=== PATIENT | female | born 1965 | race American Indian/Alaskan Native ===

== ENCOUNTER 2021-12-22 02:23 | Inpatient (IN) | payer SELFPAY ==
[2021-12-22] MEDS ORDERED: ASPIRIN EC 81 MG TAB PO SCH (10:00)
[2021-12-22] MEDS ORDERED: ALPRAZolam 0.25 MG TAB PO PRN (10:18)
[2021-12-22] MEDS ORDERED: ACETAMINOPHEN 325 MG TAB PO PRN (14:25)
[2021-12-22] MEDS ORDERED: HYDROmorphone 1 MG/1 ML INJ IV PRN (14:26)
[2021-12-22] MEDS ORDERED: NITROGLYCERIN 0.4 MG TAB SUBL SL PRN (14:28)
[2021-12-22] MEDS ORDERED: MORPHINE 2 MG/1 ML INJ IV PRN (14:28)
--- NOTE | 2021-12-22 14:51 | Consultation ---
Date of Service: 12/22/[address]: GUS MOE MD cc: ~ Consultation Draft History of Present Illness Consult date: 12/22/21 Requesting physician: ОЛЕГ SCANLON Consult reason: chest pain History of present illness: Patient is a 56 yr old who presents with chest pain. Patient wtih history of hypertension , smoking history who woke up with cehst pain. EMT were called and patient noted to have acute infeiror STEMI on EKG. Code STEMI was initiated. On presentation to the hospital patient still continues to have chest pain and had significant inferior ST-T wave changes. She was taken emergently to the [facility] underwent primary PCI of totally occluded right coronary artery. Patient had intraprocedure V. fib and was cardioverted successfully. She also had bradycardia requiring atropine infusion. Patient currently hemodynamically stable and being admitted to the ICU for further treatment post PCI. Past History Past Medical History: hypertension, other (Tobacco abuse) Social history: smoking Medications and Allergies Allergies Allergy/AdvReac Type Severity Reaction Status Date / Time Penicillins Allergy Unknown Verified 12/22/21 02:47 Active Meds: Active Medications Acetaminophen (Acetaminophen 325 Mg Tab) 650 mg PO Q4H PRN PRN Reason: Pain, Mild (1-3) Aspirin (Aspirin 81 Mg Tab Chew) 81 mg PO QDAY CHANG Atorvastatin Calcium (Atorvastatin 40 Mg Tab) 40 mg PO QHS CHANG Hydromorphone HCl (Hydromorphone 1 Mg/1 Ml Inj) 0.5 mg IV Q3H PRN PRN Reason: Pain , Severe (7-10) Heparin Sodium/Sodium Chloride (Heparin/ 0.45% Nacl-25,000 Unit/500 Ml) 25,000 unit in 500 mls @ 20 mls/hr IV TITRATE CHANG; Protocol Sodium Chloride (Nacl 0.9% 1000 Ml) 1,000 mls @ 100 mls/hr IV DIRECT CHANG Last Admin: 12/22/21 03:15 Dose: 1,000 mls Morphine Sulfate (Morphine 2 Mg/1 Ml Inj) 2 mg IV Q4H PRN PRN Reason: Pain, Moderate (4-6) Nitroglycerin (Nitroglycerin 0.4 Mg Tab Subl) 0.4 mg SL .Q5MIN PRN PRN Reason: Chest Pain Review of Systems All systems: negative (As mentioned in H&P) Physical Examination Vital Signs Temp Pulse Resp BP Pulse Ox 98 F 71 20 150/93 100 12/22/21 02:31 12/22/21 02:31 12/22/21 02:31 12/22/21 02:31 12/22/21 02:31 General appearance: no acute distress HEENT: Positive: Normocephaly Neck: Positive: neck supple Cardiac: Positive: Reg Rate and Rhythm Lungs: Positive: clear to auscultation Neuro: Positive: Grossly Intact Abdomen: Positive: Unremarkable Female genitourinary: deferred Extremities: Present: normal Results 12/22/21 02:36 12/22/21 02:36 Cardiac Enzymes 12/22/21 Range/Units 02:36 CK-MB (CK-2) 2.0 (0.0-4.0) ng/mL Coagulation 12/22/21 Range/Units 02:36 PT 12.5 (12.2-14.9) Sec. INR 0.85 L (0.87-1.13) APTT 24.4 (24.2-36.6) Sec. CBC 12/22/21 Range/Units 02:36 WBC 6.7 (4.5-11.0) K/mm3 RBC 4.55 (3.65-5.03) M/mm3 Hgb 16.0 H (10.1-14.3) gm/dl Hct 48.9 H (30.3-42.9) % Plt Count 150 (140-440) K/mm3 Lymph # (Auto) 3.2 (1.2-5.4) K/mm3 [place] # (Auto) 0.5 (0.0-0.8) K/mm3 Eos # (Auto) 0.2 (0.0-0.4) K/mm3 Baso # (Auto) 0.0 (0.0-0.1) K/mm3 Comprehensive Metabolic Panel 12/22/21 Range/Units 02:36 Sodium 143 (137-145) mmol/L Potassium 3.6 (3.6-5.0) mmol/L Chloride 105.5 (98-107) mmol/L Carbon Dioxide 22 (22-30) mmol/L BUN 12 (7-17) mg/dL Creatinine 0.9 (0.6-1.2) mg/dL Glucose 130 H (65-100) mg/dL Calcium 9.0 (8.4-10.2) mg/dL EKG interpretations - Telemetry EKG Rhythm: Sinus Rhythm (With acute inferior ST elevation DE) Assessment and Plan Impression 1. Acute inferior ST elevation DE status post PCI of the RCA with drug-eluting stent 2. Periprocedural V. fib requiring cardioversion and transient bradycardia requiring atropine patient currently hemodynamically stable 3. History of 4. History of tobacco abuse Plan 1. Dual antiplatelet therapy for 1 year preferably more 2. Routine pharmacotherapy post PCI 3. Aggrastat for 6 4. 2D echo 5. Tobacco cessation 6. If stable patient can be discharged home tomorrow Dictated By: HEATHER ROLDAN MD Electronically Authenticated By: AMANUEL
--- NOTE | 2021-12-22 14:54 | Consultation ---
Date of Service: 12/22/[address]: GUS MOE MD cc: ~ Consultation Draft History of Present Illness - Reason for Consult Consult date: 12/22/21 STEMI - History of Present Illness Patient is a 56 yr old who presents with chest pain. Patient wtih history of hypertension , smoking history who woke up with cehst pain. EMT were called and patient noted to have acute infeiror STEMI on EKG. Code STEMI was initiated. On presentation to the hospital patient still continues to have chest pain and had significant inferior ST-T wave changes. She was taken emergently to the [facility] underwent primary PCI of totally occluded right coronary artery. Patient had intraprocedure V. fib and was cardioverted successfully. She also had bradycardia requiring atropine infusion. Patient currently hemodynamically stable and being admitted to the ICU for further treatment post PCI. Past History Past Medical History: hypertension, other (Tobacco abuse and anxiety) Social history: smoking Medications and Allergies Allergies Allergy/AdvReac Type Severity Reaction Status Date / Time Penicillins Allergy Unknown Verified 12/22/21 09:06 Active Meds: Active Medications Acetaminophen (Acetaminophen 325 Mg Tab) 650 mg PO Q4H PRN PRN Reason: Pain, Mild (1-3) Atorvastatin Calcium (Atorvastatin 40 Mg Tab) 80 mg PO QHS CHANG Carvedilol (Carvedilol 3.125 Mg Tab) 3.125 mg PO BID CHANG Last Admin: 12/22/21 09:55 Dose: 3.125 mg Hydromorphone HCl (Hydromorphone 1 Mg/1 Ml Inj) 0.5 mg IV Q3H PRN PRN Reason: Pain , Severe (7-10) Heparin Sodium/Sodium Chloride (Heparin/ 0.45% Nacl-25,000 Unit/500 Ml) 25,000 unit in 500 mls @ 20 mls/hr IV TITRATE CHANG; Protocol Sodium Chloride (Nacl 0.9% 1000 Ml) 1,000 mls @ 100 mls/hr IV DIRECT CHANG Last Admin: 12/22/21 10:13 Dose: 100 mls/hr Morphine Sulfate (Morphine 2 Mg/1 Ml Inj) 2 mg IV Q4H PRN PRN Reason: Pain, Moderate (4-6) Last Admin: 12/22/21 07:30 Dose: 2 mg Nitroglycerin (Nitroglycerin 0.4 Mg Tab Subl) 0.4 mg SL .Q5MIN PRN PRN Reason: Chest Pain Ticagrelor (Ticagrelor 90 Mg Tab) 90 mg PO BID CHANG Last Admin: 12/22/21 09:56 Dose: 90 mg Exam - Constitutional Vitals: Temp Pulse Resp BP Pulse Ox 98.1 F 63 16 200/99 97 12/22/21 02:44 12/22/21 09:55 12/22/21 08:41 12/22/21 09:55 12/22/21 08:41 General appearance: Present: no acute distress, other (appears older than stated age) - EENT Eyes: Present: PERRL, EOM intact ENT: poor dentition - Neck Neck: Present: supple, normal ROM - Respiratory Respiratory effort: normal Respiratory: bilateral: CTA Results - Labs CBC & Chem 7: 12/22/21 02:36 12/22/21 02:36 Labs: Abnormal lab results 12/22/21 12/22/21 12/22/21 Range/Units 02:36 02:36 02:36 Hgb 16.0 H (10.1-14.3) gm/dl Hct 48.9 H (30.3-42.9) % MCV 107 H (79-97) fl MCH 35 H (28-32) pg Lymph % (Auto) 47.8 H (13.4-35.0) % INR 0.85 L (0.87-1.13) Glucose 130 H (65-100) mg/dL Total Creatine Kinase (30-135) units/L CK-MB (CK-2) (0.0-4.0) ng/mL CK-MB (CK-2) Rel Index (0-4) Troponin T (0.00-0.029) ng/mL Triglycerides (2-149) mg/dL Cholesterol (50-199) mg/dL LDL Cholesterol Direct (50-130) mg/dL 12/22/21 Range/Units 07:28 Hgb (10.1-14.3) gm/dl Hct (30.3-42.9) % MCV (79-97) fl MCH (28-32) pg Lymph % (Auto) (13.4-35.0) % INR (0.87-1.13) Glucose (65-100) mg/dL Total Creatine Kinase 274 H (30-135) units/L CK-MB (CK-2) 27.7 H (0.0-4.0) ng/mL CK-MB (CK-2) Rel Index 10.1 H (0-4) Troponin T 0.774 H* D (0.00-0.029) ng/mL Triglycerides 363 H (2-149) mg/dL Cholesterol 306 H (50-199) mg/dL LDL Cholesterol Direct 215 H (50-130) mg/dL - Imaging and Cardiology Chest x-ray: image reviewed (clear bilaterally) Assessment and Plan 56 y/o female with stemi 1. Follow up cards recs 2. Anxiety therapy 3. Morphine for chest pain 4. clinically appears stable for transfer out of unit Dictated By: MIRIAM ALANIZ MD Electronically Authenticated By: AMANUEL
--- NOTE | 2021-12-22 14:57 | History and Physical Report ---
Admission Date: 12/22/[address]: GUS MOE MD cc: ~ History and Physical Report Draft History of Present Illness Date of examination: 12/22/21 Date of admission: 12/22/21 Chief complaint: Chest pain History of present illness: 56 years old female with history of hypertension and tobacco abuse was brought to the emergency room code STEMI. Patient symptoms started approximately 20 minutes prior to coming to the ER with left sided chest pain, tightness with radiation to the left upper extremity. Patient rated her pain as 8 out of 10. Patient denies any shortness of breath, fever, chills or cough. EMS transmitted EKG prior to coming to the ER. ER doctor reviewed the EKG and immediately activated STEMI protocol. Case discussed the patient with Dr. Hernandez, interventionalist on-call. Patient is going for the heart cath .patient received aspirin by EMS. Patient given a heparin bolus and started on heparin drip. Past History Past Medical History: hypertension, other (Tobacco abuse) Social history: smoking Medications and Allergies Allergies Allergy/AdvReac Type Severity Reaction Status Date / Time Penicillins Allergy Unknown Verified 12/22/21 02:47 Active Meds: Active Medications Heparin Sodium (Porcine) (Heparin 1,000 Unit/1 Ml Vial) 4,000 unit IV BOLUS ONE Stop: 12/22/21 02:29 Sodium Chloride (Nacl 0.9% 1000 Ml) 1,000 mls @ 999 mls/hr IV BOLUS ONE Stop: 12/22/21 03:28 Heparin Sodium/Sodium Chloride (Heparin/ 0.45% Nacl-25,000 Unit/500 Ml) 25,000 unit in 500 mls @ 0 mls/hr IV TITRATE CHANG; Protocol Review of Systems Cardiovascular: chest pain, shortness of breath, dyspnea on exertion Respiratory: shortness of breath, dyspnea on exertion Exam - Constitutional Vitals: Temp Pulse Resp BP Pulse Ox 98.1 F 79 12 150/93 100 12/22/21 02:44 12/22/21 02:49 12/22/21 02:45 12/22/21 02:45 12/22/21 02:44 General appearance: Present: severe distress - EENT Eyes: Present: PERRL ENT: hearing intact, clear oral mucosa - Neck Neck: Present: supple, normal ROM - Respiratory Respiratory effort: normal Respiratory: bilateral: diminished - Cardiovascular Heart Sounds: Present: S1 & S2. Absent: rub, click - Extremities Extremities: pulses symmetrical, No edema Peripheral Pulses: within normal limits - Abdominal General gastrointestinal: Present: soft, non-tender, non-distended, normal bowel sounds Female genitourinary: Present: normal - Integumentary Integumentary: Present: clear, warm, dry - Musculoskeletal Musculoskeletal: gait normal, strength equal bilaterally - Psychiatric Psychiatric: appropriate mood/affect, intact judgment & insight - Neurologic Neurologic: CNII-XII intact, moves all extremities HEART Score - HEART Score EKG: Significant ST-depression Age: 45-65 Risk factors: 1-2 risk factors - Critical Actions Critical Actions: >7 pts:50-65% risk of adverse cardiac event. Early invasive measures Results - Labs CBC & Chem 7: 12/22/21 02:36 Labs: Laboratory Last Values WBC 6.7 K/mm3 (4.5-11.0) 12/22/21 02:36 RBC 4.55 M/mm3 (3.65-5.03) 12/22/21 02:36 Hgb 16.0 gm/dl (10.1-14.3) H 12/22/21 02:36 Hct 48.9 % (30.3-42.9) H 12/22/21 02:36 MCV 107 fl (79-97) H 12/22/21 02:36 MCH 35 pg (28-32) H 12/22/21 02:36 MCHC 33 % (30-34) 12/22/21 02:36 RDW 13.2 % (13.2-15.2) 12/22/21 02:36 Plt Count 150 K/mm3 (140-440) 12/22/21 02:36 Lymph % (Auto) 47.8 % (13.4-35.0) H 12/22/21 02:36 [place] % (Auto) 6.8 % (0.0-7.3) 12/22/21 02:36 Eos % (Auto) 3.1 % (0.0-4.3) 12/22/21 02:36 Baso % (Auto) 0.5 % (0.0-1.8) 12/22/21 02:36 Lymph # (Auto) 3.2 K/mm3 (1.2-5.4) 12/22/21 02:36 [place] # (Auto) 0.5 K/mm3 (0.0-0.8) 12/22/21 02:36 Eos # (Auto) 0.2 K/mm3 (0.0-0.4) 12/22/21 02:36 Baso # (Auto) 0.0 K/mm3 (0.0-0.1) 12/22/21 02:36 Seg Neutrophils % 41.8 % (40.0-70.0) 12/22/21 02:36 Seg Neutrophils # 2.8 K/mm3 (1.8-7.7) 12/22/21 02:36 Blood Type B POSITIVE 12/22/21 02:36 - Imaging and Cardiology Chest x-ray: report reviewed Assessment and Plan VTE prophylaxis?: Chemical Plan of care discussed with patient/family: Yes - Patient Problems (1) STEMI (ST elevation myocardial infarction) Status: Acute Plan to address problem: Admit the patient to the critical care unit. ER doctor reviewed the EKG and immediately activated STEMI protocol. Case discussed the patient with Dr. Hernandez, interventionalist on-call. Patient is going for the heart cath .patient received aspirin by EMS. Patient given a heparin bolus and started on heparin drip. We will do the serial cardiac enzymes. Echocardiogram. We also consult critical care evaluation (2) Hypertension Status: Acute Plan to address problem: Hydralazine 10 mg IV every 6 hours as needed. We will continue the home medication (3) Tobacco abuse Status: Acute Plan to address problem: Patient counseled regarding quitting smoking. We also put the patient on nicotine patch (4) DVT prophylaxis Status: Acute Plan to address problem: Heparin drip for DVT prophylaxis. Pepcid 20 mg IV every 12 hours for GI prophylaxis. Patient is a full code MTDD
--- NOTE | 2021-12-22 14:59 | Physician Progress Note ---
Date of Service: 12/22/[address]: GUS MOE MD cc: ~ Progress Note Draft Assessment and Plan - Patient Problems (1) STEMI (ST elevation myocardial infarction) Current Visit: No Status: Acute Plan to address problem: Continue guideline directed medical therapy, dual oral antiplatelet therapy with baby aspirin and Brilinta. Patient is stable for transfer to telemetry today, with anticipated discharge plan for tomorrow. Subjective Date of service: 12/22/21 Principal diagnosis: Acute inferior STEMI Interval history: 56-year-old woman with chronic tobacco abuse, hypertension, who presented with an acute inferior STEMI. Successful PCI with coronary stent placement in the mid distal AV groove right coronary artery. Currently chest pain-free, appears anxious, no acute respiratory distress. Objective Vital Signs Temp Pulse Pulse Resp BP BP Pulse Ox 12/22/21 12:43 81 16 99 12/22/21 12:41 64 11 L 177/106 100 12/22/21 12:30 93 H 16 177/106 99 12/22/21 12:21 71 13 182/91 98 12/22/21 12:16 74 182/91 12/22/21 12:11 73 16 182/91 100 12/22/21 12:01 61 16 187/96 100 12/22/21 11:51 88 12 187/96 100 12/22/21 11:41 81 12 187/96 100 12/22/21 11:31 91 H 20 187/96 100 12/22/21 11:21 59 L 11 L 187/96 98 12/22/21 11:11 66 17 172/83 99 12/22/21 11:00 59 L 14 172/83 98 12/22/21 10:51 62 22 149/102 98 12/22/21 10:41 90 12 192/123 99 12/22/21 10:30 73 12 192/123 100 12/22/21 10:21 83 13 175/113 98 12/22/21 10:11 81 17 167/104 99 12/22/21 10:00 81 14 167/104 100 12/22/21 09:55 63 200/99 12/22/21 09:51 68 14 173/136 99 12/22/21 09:41 67 15 171/108 98 12/22/21 09:30 82 13 171/108 98 12/22/21 09:21 79 7 L 156/98 98 12/22/21 09:11 77 9 L 160/103 98 12/22/21 09:02 78 16 98 12/22/21 09:00 70 13 160/103 98 12/22/21 08:51 67 14 153/86 99 12/22/21 08:41 62 16 166/92 97 12/22/21 08:30 60 11 L 166/92 97 12/22/21 08:21 63 15 153/106 100 12/22/21 08:11 83 16 171/106 98 12/22/21 08:00 78 17 171/106 99 12/22/21 07:51 67 10 L 167/97 100 12/22/21 07:41 82 12 154/99 100 12/22/21 07:30 81 16 173/111 100 12/22/21 07:21 75 16 172/104 99 12/22/21 07:11 67 11 L 140/103 99 12/22/21 07:00 79 8 L 140/103 97 12/22/21 06:51 63 9 L 147/110 98 12/22/21 06:41 95 H 13 154/108 97 12/22/21 06:30 67 14 154/108 99 12/22/21 06:21 84 19 153/92 98 12/22/21 06:11 77 21 161/100 96 12/22/21 06:00 74 23 163/98 97 12/22/21 05:51 76 24 158/107 97 12/22/21 05:41 78 22 156/93 95 12/22/21 05:30 156/93 92 12/22/21 05:21 138/99 93 12/22/21 05:11 150/99 95 12/22/21 05:00 97 H 22 150/99 93 12/22/21 04:51 86 22 153/92 94 12/22/21 04:41 86 19 137/89 96 12/22/21 04:30 89 20 137/89 95 12/22/21 04:21 88 14 94 12/22/21 04:14 88 17 12/22/21 04:07 84 16 98 12/22/21 02:50 75 17 145/94 98 12/22/21 02:49 79 12/22/21 02:45 70 12 150/93 12/22/21 02:44 98.1 F 72 14 150/93 100 12/22/21 02:41 20 99 12/22/21 02:37 75 15 149/92 100 12/22/21 02:31 98 F 71 20 150/93 100 - Physical Examination General: No Apparent Distress HEENT: Positive: Normocephaly Neck: Positive: neck supple Cardiac: Positive: Reg Rate and Rhythm Lungs: Positive: Decreased Breath Sounds Neuro: Positive: Grossly Intact Abdomen: Positive: Unremarkable Skin: Positive: Clear Extremities: Absent: edema - Labs and Meds Cardiac Enzymes 12/22/21 12/22/21 12/22/21 Range/Units 02:36 07:28 11:31 CK-MB (CK-2) 2.0 27.7 H 33.2 H (0.0-4.0) ng/mL Coagulation 12/22/21 Range/Units 02:36 PT 12.5 (12.2-14.9) Sec. INR 0.85 L (0.87-1.13) APTT 24.4 (24.2-36.6) Sec. Lipids 12/22/21 Range/Units 07:28 Triglycerides 363 H (2-149) mg/dL Cholesterol 306 H (50-199) mg/dL HDL Cholesterol 58 (40-59) mg/dL Cholesterol/HDL Ratio 5.27 % CBC 12/22/21 Range/Units 02:36 WBC 6.7 (4.5-11.0) K/mm3 RBC 4.55 (3.65-5.03) M/mm3 Hgb 16.0 H (10.1-14.3) gm/dl Hct 48.9 H (30.3-42.9) % Plt Count 150 (140-440) K/mm3 Lymph # (Auto) 3.2 (1.2-5.4) K/mm3 [place] # (Auto) 0.5 (0.0-0.8) K/mm3 Eos # (Auto) 0.2 (0.0-0.4) K/mm3 Baso # (Auto) 0.0 (0.0-0.1) K/mm3 Comprehensive Metabolic Panel 12/22/21 Range/Units 02:36 Sodium 143 (137-145) mmol/L Potassium 3.6 (3.6-5.0) mmol/L Chloride 105.5 (98-107) mmol/L Carbon Dioxide 22 (22-30) mmol/L BUN 12 (7-17) mg/dL Creatinine 0.9 (0.6-1.2) mg/dL Glucose 130 H (65-100) mg/dL Calcium 9.0 (8.4-10.2) mg/dL MTDD
--- NOTE | 2021-12-22 15:02 | Electrocardiograph Report ---
Ordering Dr: VINCE RUIZ MD [employer] Winder: REMINGTON GUALLPA Date of Service:12/22/21 cc: ~ Electrocardiograph Report Draft [facility] Test Date: 2021-12-22 Test Time: 02:38:32 Pat Name: DEBI QUINN Department: Room: [facility] Gender: F Mail Processing Clerk: KENDRA : 1965 Requested By: VINCE RUIZ Order Number: [id number] Reading MD: Alcon Ricks Measurements Intervals [place] Rate: 66 P: 46 GA: 147 QRS: -18 QRSD: 79 T: 109 QT: 408 QTc: 428 Interpretive Statements Sinus rhythm LVH with secondary repolarization abnormality ST elevation secondary to LVH No previous ECG available for comparison MTDD
--- NOTE | 2021-12-22 15:05 | Electrocardiograph Report ---
Gender: F [employer] Mechanic: JARAD : 1965 Requested By: ОЛЕГ SCANLON Order Number: [id number] Reading MD: Alcon Ricks Measurements Intervals [place] Rate: 84 P: 50 [place]: 145 QRS: -15 QRSD: 76 T: 73 QT: 371 QTc: 439 Interpretive Statements Sinus rhythm Left atrial enlargement Nonspecific T abnrm, anterolateral leads Compared to ECG 12/22/2021 02:38:32 Atrial abnormality now present Left ventricular hypertrophy no longer present Early repolarization no longer present ST (T wave) deviation no longer present MTDD
[2021-12-22] MEDS: ALPRAZolam 0.25 MG TAB PO SCH ×2 (15:35→22:00)
--- NOTE | 2021-12-22 17:19 | Event Note ---
Date: 12/22/21 This is a 56-year-old female with HTN, tobacco abuse who presented to emergency department on 12/22 via EMS with complaints of left-sided chest pain 05/26, tightness and radiation to the left upper extremity without shortness of breath. EMS transmitted ECG to ER and code STEMI was activated prior to arrival. On- call interventionalist Dr. Hernandez took the patient for a left heart cath and underwent a primary PCI of totally occluded RCA. Intraprocedure patient had V. fib and was cardioverted successfully and had bradycardia requiring atropine i nfusion.. 12/22: Patient remains chest pain-free, started on Xanax due to anxiety, Imdur, metoprolol and valsartan. Patient has been cleared by cardiology to transfer to the floor. Assessment and plan This is a 50-year-old female with HTN, tobacco abuse admitted with STEMI Neuro: NAD -Avoid delirium -Reorientation as needed -Maintain sleep-wake cycle Cardiac: STEMI, s/p PCI with RONALD to RCA (100% blockage), intraprocedure V. fib with cardioversion and SB s/p atropine -Cardiology consulted, appreciate recommendations -Blood pressure monitoring per protocol -Dual antiplatelet therapy with Brilinta and aspirin -Valsartan, Imdur, Lipitor, metoprolol -Echocardiogram pending -ECG as needed -Nitroglycerin as needed -CCM consulted, appreciate recommendations -Lipid panel noted Respiratory: NAD, current nicotine abuse -Currently on room air -Pulmonary hygiene -SPO2 monitoring -Supplemental oxygen as needed -Smoking cessation counseling provided GI: NAD -24 hours MIAH -PPI -BR: Colace : NAD -Avoid nephrotoxic medications -Trend BMP ID: NAD -Monitor WBC and temperature curve Endo: NAD -Avoid hypoglycemia Heme: NAD -Trend CBC -Transfuse hemoglobin less than 7 -Monitor for signs of bleeding -SCDs to BLE while in bed Disposition: Transfer to floor; telemetry The high probability of a clinically significant, sudden or life threatening deterioration of the [cardiovascular] system(s) required my full and direct attention, intervention and personal management. The aggregate critical care time was [60] minutes. This time is in addition to time spent performing reported procedures but includes the following: [x] Data Review and interpretation [x] Patient assessment and monitoring of vital signs [x] Documentation [x] Medication orders and management
[2021-12-22] MEDS: TICAGRELOR 90 MG TAB PO SCH (22:52)
[2021-12-22] MEDS: METOPROLOL TARTRATE 50 MG TAB PO SCH (23:00)
[2021-12-22] MEDS: DOCUSATE SODIUM 100 MG CAP PO SCH (23:00)
[2021-12-22] MEDS: VALSARTAN 40 MG TAB PO SCH (23:00)
[2021-12-22] MEDS ORDERED: diphenhydrAMINE 25 MG CAP PO ONE (23:06)
--- NOTE | 2021-12-23 08:38 | Progress Note ---
Assessment and Plan - Patient Problems (1) Acute ST elevation myocardial infarction (STEMI) of inferior wall Current Visit: Yes Status: Acute Plan to address problem: Status post primary PCI of the right coronary artery stenosis. Continue baby aspirin and Brilinta, continue other guideline directed medical therapy. Patient is stable for cardiac discharge today on current medications. (2) Uncontrolled hypertension Current Visit: Yes Status: Acute Plan to address problem: Systolic blood pressure is still elevated on valsartan 80 mg twice daily. I will add Procardia XL 30 to 60 mg daily to her regimen for optimal blood pressure control. The patient has been advised to stop smoking. Subjective Date of service: 12/23/21 Principal diagnosis: Acute inferior STEMI Interval history: Patient looks and feels better, following her primary PCI of the right coronary yesterday for acute inferior STEMI. Blood pressure continues to run elevated on valsartan. Objective Vital Signs Temp Pulse Resp BP Pulse Ox 12/23/21 03:40 97.8 F 46 L 12 152/92 99 12/22/21 23:13 97.9 F 59 L 14 153/106 100 12/22/21 19:17 97.9 F 62 17 171/84 99 12/22/21 15:00 98 12/22/21 13:00 98 12/22/21 11:24 98 12/22/21 10:00 81 - Physical Examination General: No Apparent Distress HEENT: Positive: PERRL Neck: Positive: neck supple Cardiac: Positive: Reg Rate and Rhythm Lungs: Positive: Decreased Breath Sounds Neuro: Positive: Grossly Intact Abdomen: Positive: Soft Skin: Positive: Clear Extremities: Absent: edema
--- NOTE | 2021-12-23 08:56 | Progress Note ---
Assessment and Plan Assessment and plan: This is a 56-year-old female with HTN, tobacco abuse who presented to emergency department on 12/22 via EMS with complaints of left-sided chest pain 05/26, tightness and radiation to the left upper extremity without shortness of breath. EMS transmitted ECG to ER and code STEMI was activated prior to arrival. On- call interventionalist Dr. Hernandez took the patient for a left heart cath and underwent a primary PCI of totally occluded RCA. Intraprocedure patient had V. fib and was cardioverted successfully and had bradycardia requiring atropine infusion.. 12/22: Patient remains chest pain-free, started on Xanax due to anxiety, Imdur, metoprolol and valsartan. Patient has been cleared by cardiology to transfer to the floor. Assessment and plan This is a 50-year-old female with HTN, tobacco abuse admitted with STEMI Neuro: NAD -Avoid delirium -Reorientation as needed -Maintain sleep-wake cycle Cardiac: STEMI, s/p PCI with RONALD to RCA (100% blockage), intraprocedure V. fib with cardioversion and SB s/p atropine -Cardiology consulted, appreciate recommendations -Blood pressure monitoring per protocol -Dual antiplatelet therapy with Brilinta and aspirin -Valsartan, Imdur, Lipitor, metoprolol -Echocardiogram pending -ECG as needed -Nitroglycerin as needed -CCM consulted, appreciate recommendations -Lipid panel noted Respiratory: NAD, current nicotine abuse -Currently on room air -Pulmonary hygiene -SPO2 monitoring -Supplemental oxygen as needed -Smoking cessation counseling provided GI: NAD -24 hours MIAH -PPI -BR: Colace : NAD -Avoid nephrotoxic medications -Trend BMP ID: NAD -Monitor WBC and temperature curve Endo: NAD -Avoid hypoglycemia Heme: NAD -Trend CBC -Transfuse hemoglobin less than 7 -Monitor for signs of bleeding -SCDs to BLE while in bed Hospitalist Physical - Constitutional Vitals: Temp Pulse Resp BP Pulse Ox 97.8 F 46 L 12 152/92 99 12/23/21 03:40 12/23/21 03:40 12/23/21 03:40 12/23/21 03:40 12/23/21 03:40 Results - Labs Labs: Laboratory Last Values Hemoglobin A1c 5.1 % (4-6) 12/22/21 02:36 Active Medications - Current Medications Current Medications: Generic Name Dose Route Start Last Admin Trade Name Freq PRN Reason Stop Dose Admin Acetaminophen 650 mg 12/22/21 14:25 12/22/21 23:21 Acetaminophen 325 Mg Tab PO 650 mg Q4H PRN Administration Pain, Mild (1-3) Alprazolam 0.25 mg 12/22/21 15:00 12/22/21 22:00 Alprazolam 0.25 Mg Tab PO Not Given Q12HR [facility] Aspirin 81 mg 12/23/21 10:00 Aspirin Ec 81 Mg Tab PO QDAY [facility] Atorvastatin Calcium 80 mg 12/22/21 22:00 12/22/21 23:00 Atorvastatin 40 Mg Tab PO 80 mg QHS [facility] Administration Docusate Sodium 100 mg 12/22/21 22:00 12/22/21 23:00 Docusate Sodium 100 Mg Cap PO 100 mg BID [facility] Administration Famotidine 20 mg 12/23/21 10:00 Famotidine 20 Mg Tab PO QDAY [facility] Hydromorphone HCl 0.5 mg 12/22/21 14:26 Hydromorphone 1 Mg/1 Ml Inj IV Q3H PRN Pain , Severe (7-10) Isosorbide Mononitrate 30 mg 12/23/21 10:00 Isosorbide Mononitrate Er 30 Mg Tab PO DAILY [facility] Metoprolol Tartrate 50 mg 12/22/21 22:00 12/22/21 23:00 Metoprolol Tartrate 50 Mg Tab PO 50 mg BID [facility] Administration Morphine Sulfate 2 mg 12/22/21 14:28 Morphine 2 Mg/1 Ml Inj IV Q4H PRN Pain, Moderate (4-6) Nicotine 14 mg 12/23/21 10:00 Nicotine 14 Mg/24 Hr Patch TD QDAY [facility] Nifedipine 60 mg 12/23/21 10:00 Nifedipine Xl 60 Mg Tab PO QDAY [facility] Nitroglycerin 0.4 mg 12/22/21 14:28 Nitroglycerin 0.4 Mg Tab Subl SL .Q5MIN PRN Chest Pain Ticagrelor 90 mg 12/22/21 22:00 12/22/21 22:52 Ticagrelor 90 Mg Tab PO 90 mg BID [facility] Administration Valsartan 80 mg 12/22/21 22:00 12/22/21 23:00 Valsartan 40 Mg Tab PO 80 mg BID [facility] Administration
[2021-12-23] MEDS ORDERED: FAMOTIDINE 20 MG TAB PO SCH (10:00)
[2021-12-23] MEDS ORDERED: ASPIRIN EC 81 MG TAB PO SCH (10:00)
[2021-12-23] MEDS ORDERED: NIFEdipine XL 60 MG TAB PO SCH (10:00)
[2021-12-23] MEDS ORDERED: NICOTINE 14 MG/24 HR PATCH TD SCH (10:00)
[2021-12-23 10:02] LABS: Alanine Aminotransferase 27 units/L (7-56); Albumin 4.3 g/dL (3.9-5); Blood Urea Nitrogen 11 mg/dL (7-17); Calcium 9.9 mg/dL (8.4-10.2); Chol/HDL Ratio 5.37 %; HDL Cholesterol 56 mg/dL (40-59); Hemolysis Index 35; LDL Cholesterol,Direct 209 mg/dL (50-130)
--- NOTE | 2021-12-23 10:06 | XRay Report ---
Attending Dr: GUS MOE MD Ordering Physician: VINCE RUIZ Date of Service: 12/22/21 Procedure(s): XR chest 1V ap Accession Number(s): [id number] cc: ~ Fluoro Time In Minutes: CHEST 1 VIEW INDICATION / CLINICAL INFORMATION: chest pain. COMPARISON: None available. FINDINGS: SUPPORT DEVICES: None. HEART / MEDIASTINUM: No significant abnormality. LUNGS / PLEURA: No significant pulmonary or pleural abnormality. No pneumothorax. ADDITIONAL FINDINGS: No significant additional findings. IMPRESSION: 1. No active cardiopulmonary disease. MTDD
[2021-12-23 10:09] LABS: Eosinophils # (Auto) 0.1 K/mm3 (0.0-0.4); Eosinophils % (Auto) 2.7 % (0.0-4.3); Hematocrit 53.5 % (30.3-42.9); Hemoglobin 17.7 gm/dl (10.1-14.3); Lymphocytes # (Auto) 1.3 K/mm3 (1.2-5.4); Lymphocytes % (Auto) 29.4 % (13.4-35.0); Mean Corpuscular HGB Conc 33 % (30-34); Mean Corpuscular Volume 107 fl (79-97); Monocytes # (Auto) 0.5 K/mm3 (0.0-0.8); Monocytes % (Auto) 11.1 % (0.0-7.3); Platelet Count 143 K/mm3 (140-440); Red Blood Count 5.02 M/mm3 (3.65-5.03); Red Cell Distribution Width 13.2 % (13.2-15.2)
[2021-12-23 10:15] LABS: BUN/Creatinine Ratio 16
--- NOTE | 2021-12-23 10:38 | Cardiac Catherization Report ---
DATE OF PROCEDURE: 12/22/2021 CORONARY ANGIOGRAM REPORT PROCEDURES PERFORMED: 1. Selective left and right coronary angiogram. 2. Left ventriculogram. 3. Successful percutaneous intervention of the right coronary artery. 4. Perioperative ventricular fibrillation status post successful cardioversion. 5. Transient perioperative bradycardia and hypotension, resolved with atropine and Rivas-Synephrine. LIMITED RADIOLOGY TECHNICIAN: Loi Hernandez MD. INDICATION: Acute inferior ST elevation myocardial infarction. SEDATION DETAILS: Conscious sedation was administered under my direct supervision. The patient received Versed and fentanyl. Sedation start time 3:15 a.m., sedation end time 3:35 a.m. Total sedation is 20 minutes. DESCRIPTION OF PROCEDURE: 1. The patient was prepped and draped in a sterile fashion after informed consent. 2. The right groin was anesthetized using local Lidocaine infiltration. 3. The right radial artery was entered using the Seldinger technique, followed by the placement of a 6-Malian sheath. 4. Selective left and right coronary angiography was performed using 6-Malian Ashly catheters. Angiograms were done in multiple projections. 5. Selective left ventricular angiography was done using a 6-Malian pigtail catheter. Left ventricular angiography was performed in the right anterior oblique projection. 6. The catheters were withdrawn, the sheath removed, and hemostasis was achieved. 7. The patient was transferred to the post cardiac catheterization unit in stable condition. There were no complications, equipment malfunction, or technical difficulties. PERCUTANEOUS INTERVENTION DETAILS: Intravenous heparin was used to maintain therapeutic ACT. Intravenous Aggrastat also initiated given the thrombotic nature of the stenosis. A BMW wire was used to cross the lesion in the right coronary artery. After initial predilatation, a 3.0 x 18 mm Resolute Domo drug-eluting stent was deployed in the distal right coronary artery. This was then postdilated with a 3.0 noncompliant balloon to high atmosphere. Prior to balloon dilatation, the patient went into transient V-fib and had to be cardioverted. She also had bradycardia requiring atropine and Rivas-Synephrine that resolved post-drug administration. The wire was removed. Angiogram repeated. Excellent results were noted. The patient tolerated the procedure well and was chest pain free at the end of the procedure. FINDINGS: HEMODYNAMICS: 1. AO 121/72. 2. LV 121/25. 3. LVEDP was 25. No significant gradient across the aortic valve. 4. Left ventriculogram done in 30 degrees MARRUFO projection shows normal LV systolic function with mild inferior hypokinesis. ANGIOGRAM DETAILS: 1. Left main is angiographically normal. 2. LAD is a large caliber vessel. Eccentric mid 30% stenosis noted. 3. The circumflex is a large caliber vessel. There is a large OM that bifurcates into superior and inferior branches. The inferior branch has an ostial 50-60% stenosis. 4. The RCA is medium caliber vessel. Dominant vessel with 100% distal occlusion. IMPRESSION: 1. Status post successful percutaneous coronary intervention of 100% occlusion of the distal right coronary artery in the setting of ST elevation myocardial infarction. 2. Nonobstructive mid left anterior descending and obtuse marginal disease to be treated medically. 3. Preserved left ventricular systolic function with mildly elevated left ventricular end-diastolic pressure. PLAN: 1. Continue dual antiplatelet therapy for 1 year, preferably more. 2. Routine pharmacotherapy post-PCI. 3. Aggrastat for 6 hours. 4. Routine radial artery sheath care. TID: [id number] RECEIPT: [id number] JOSUE/MARCELINO/LIZETTE
[2021-12-23] MEDS: METOPROLOL TARTRATE 50 MG TAB PO SCH (11:07)
[2021-12-23] MEDS: VALSARTAN 40 MG TAB PO SCH (11:07)
[2021-12-23] MEDS: DOCUSATE SODIUM 100 MG CAP PO SCH (11:07)
[2021-12-23] MEDS: ALPRAZolam 0.25 MG TAB PO SCH (11:08)
[2021-12-23] MEDS: TICAGRELOR 90 MG TAB PO SCH (11:08)
--- NOTE | 2021-12-23 12:00 | Discharge Summary ---
Providers - Providers Date of Admission: 12/22/21 02:50 Date of discharge: 12/23/21 Attending physician: LIDIA MEDELLIN Primary care physician: [facility] Hospitalization Procedures: Status post primary PCI of the right coronary artery stenosis. Continue baby aspirin and Brilinta, continue other guideline directed medical therapy. Patient is stable for cardiac discharge today on current medications. Hospital course: Discharge diagnosis ST elevation MS Hypertension Dyslipidemia Ongoing tobacco use Disposition: HOME / SELF CARE / HOMELESS Final Discharge Diagnosis (Prints w/discharge instructions): ST elevation MS. Hypertension. Dyslipidemia. Ongoing tobacco use Time spent for discharge: 40 min Core Measure Documentation - Palliative Care Palliative Care/ Comfort Measures: Not Applicable - Core Measures Any of the following diagnoses?: acute MS - Acute MS Discharge Requirements Aspirin at discharge: Yes MONAE/ARB for LVSD if EF <40%: Yes Beta eli at discharge: Yes Statin for LDL = or >100 mg/dl on DC: Yes Exam - Constitutional Vitals: Temp Pulse Resp BP Pulse Ox 97.8 F 55 L 18 171/109 100 12/23/21 08:09 12/23/21 08:09 12/23/21 08:09 12/23/21 08:09 12/23/21 08:09 General appearance: Present: no acute distress, well-nourished - EENT Eyes: Present: PERRL, EOM intact - Neck Neck: Present: supple, normal ROM - Respiratory Respiratory effort: normal Respiratory: bilateral: diminished, negative: rales, rhonchi, wheezing - Cardiovascular Rhythm: regular Heart Sounds: Present: S1 & S2 - Extremities Extremities: no ischemia, No edema - Abdominal General gastrointestinal: Present: soft, non-tender, non-distended, normal bowel sounds - Integumentary Integumentary: Present: clear, warm - Musculoskeletal Musculoskeletal: strength equal bilaterally, generalized weakness - Psychiatric Psychiatric: appropriate mood/affect, cooperative Plan Activity: advance as tolerated Diet: other (Cardiac diet) Additional Instructions: If you have worsening symptoms contact MD or go to the nearest emergency room. Strongly advised to comply with medications, diet, follow-up visits. Advised to follow primary care physician in 5 to 7 days. Advised to follow private seamer operator per schedule Follow up with: ERIK CARTER MD [Primary Care Provider] - 7 Days ARLENE THOMSON MD [Staff Physician] - 7 Days Prescriptions: Ticagrelor [Brilinta] 90 mg PO BID #60 tablet Docusate Sodium [Colace CAP] 100 mg PO BID #14 capsule Valsartan [Diovan] 80 mg PO BID #60 tablet Nicotine [Habitrol] 14 mg TD QDAY #30 patch Aspirin EC [Halfprin EC] 81 mg PO QDAY #30 tablet ISOSORBIDE MONOnitrate [Imdur ER] 30 mg PO DAILY #30 tablet AtorvaSTATin [Lipitor] 80 mg PO QHS #30 tablet Metoprolol [Lopressor TAB] 50 mg PO BID #60 tablet Famotidine [Pepcid] 20 mg PO QDAY #30 tablet NIFEdipine XL [Procardia Xl] 60 mg PO QDAY #30 tablet
[2021-12-23 12:11] VITALS: BP 147/83
--- NOTE | 2021-12-24 15:53 | XRay Report ---
CHEST 1 VIEW INDICATION / CLINICAL INFORMATION: chest pain. COMPARISON: None available. FINDINGS: SUPPORT DEVICES: None. HEART / MEDIASTINUM: No significant abnormality. LUNGS / PLEURA: No significant pulmonary or pleural abnormality. No pneumothorax. ADDITIONAL FINDINGS: No significant additional findings. IMPRESSION: 1. No active cardiopulmonary disease. Signer Name: Pal Bonds II, MD Signed: 12/22/2021 2:50 AM Workstation Name: [id number]
== END 2021-12-23 13:00 | disposition home or self-care (01) | DRG 246 ==
LOC: ED 02:23 → CC1 02:50 → 4A 17:25
PROVIDERS: ADMIT Hospitalist; ATTEND Internal Medicine
PROC: 4A023N7 Measurement of Cardiac Sampling and Pressure, Left Heart, Percutaneous Approach (ICD-10-PCS; principal; 2021-12-22)
PROC: 027034Z Dilation of Coronary Artery, One Artery with Drug-eluting Intraluminal Device, Percutaneous Approach (ICD-10-PCS; 2021-12-22)
PROC: 5A2204Z Restoration of Cardiac Rhythm, Single (ICD-10-PCS; 2021-12-22)
PROC: B2111ZZ Fluoroscopy of Multiple Coronary Arteries using Low Osmolar Contrast (ICD-10-PCS; 2021-12-22)
PROC: B2151ZZ Fluoroscopy of Left Heart using Low Osmolar Contrast (ICD-10-PCS; 2021-12-22)
DX: I21.19 ST elevation (STEMI) myocardial infarction involving other coronary artery of inferior wall (principal); I49.01 Ventricular fibrillation; I10 Essential (primary) hypertension; E78.5 Hyperlipidemia, unspecified; F17.200 Nicotine dependence, unspecified, uncomplicated; I95.9 Hypotension, unspecified; Z88.0 Allergy status to penicillin
CPT/HCPCS: 36415; 71045; 80048; 80053; 80061; 82550; 82553; 83036; 83735; 84484; 85025; 85610; 85730; 86850; 86900; 86901; 92941; 93005; 93458; G0378; J1815; J3490; Q0162; C1725; C1769; C1874; C1887; C1894; C9606; J0171; J0461; J1265; J1644; J2001; J2250; J2270; J2370; J3010; J3246; J7030; Q9967